=== PATIENT | female | born 1990 | race Caucasian/White ===

== ENCOUNTER 2016-10-02 00:49 | Emergency (ER) | payer MEDICAID ==
[~2016-10-02] VITALS: Ht 170.2 cm; Wt 110.2 kg
[~2016-10-02 00:49] MED LIST: KEFLEX500 M1 PO; MOTRIN; PRENATAL
[2016-10-02 00:51] VITALS: BP 146/74
--- NOTE | 2016-10-02 01:01 | NUR ---
TO ER BED 5
--- NOTE | 2016-10-02 01:15 | NUR ---
26/F BIB FAMILY C/O SOB x 30 MINUTES AGO. COLD SYMPTOMS 3 DAYS. PT STATES NO MEDICAL HX . DENIES N/V/D; SKIN IS PINK/WARM/DRY; AAOX4 WITH EVEN AND STEADY GAIT; LUNGS CLEAR BL; HR EVEN AND REGULAR; PT DENIES ANY FEVER, CP, AT THIS TIME; PATIENT STATES PAIN OF 5/10 AT THIS TIME; VSS; PATIENT POSITIONED FOR COMFORT; HOB ELEVATED; BEDRAILS UP X2; BED DOWN. ER MD MADE AWARE OF PT STATUS.
[2016-10-02] MEDS ORDERED: predniSONE 20 MG TAB PO ONE (02:40)
[2016-10-02] MEDS ORDERED: ALBUTEROL 0.083% 2.5 MG/3 ML NEBU INH ONE (02:40)
[2016-10-02] MEDS ORDERED: ALBUTEROL SULFATE/IPRATROPIU 3 ML SOL IH ONE (02:40)
[2016-10-02 03:08] VITALS: BP 146/74
== END 2016-10-02 03:08 | disposition home or self-care (01) ==
LOC: MED 00:49
DX: R06.02 Shortness of breath (principal); R05 Cough
CPT/HCPCS: 94640; 99283; J7512; J7613; J7620

== ENCOUNTER 2021-10-18 03:34 | Emergency (ER) | payer SELFPAY ==
[~2021-10-18] VITALS: Ht 170.2 cm; Wt 112.0 kg
[~2021-10-18 03:34] MED LIST changes: +KEF500 PO; -KEFLEX500 M1 PO; -PRENATAL
[2021-10-18 03:43] VITALS: BP 131/77
--- NOTE | 2021-10-18 03:48 | NUR ---
pt taken to bed 07.
[2021-10-18 05:18] VITALS: BP 131/77
--- NOTE | 2021-10-18 05:51 | NUR ---
Patient discharged with v/s stable. Written and verbal after care instructions given and explained. Patient verbalized understanding. Ambulatory with steady gait. All questions addressed prior to discharge. Advised to follow up with PMD.
== END 2021-10-18 05:51 | disposition home or self-care (01) ==
LOC: MED 03:34
DX: M79.601 Pain in right arm (principal)
CPT/HCPCS: 99281